=== PATIENT | male | born 1975 | race Caucasian/White ===

== ENCOUNTER 2020-03-14 02:26 | Emergency (ER) | payer MEDICAID ==
[~2020-03-14] VITALS: Ht 172.7 cm; Wt 92.5 kg
[2020-03-14 02:50] VITALS: BP 119/65
--- NOTE | 2020-03-14 02:52 | NUR ---
To ED bed 11
--- NOTE | 2020-03-14 03:02 | NUR ---
PT C/O ABD PAIN X1D @ 8/10 ON ADULT SCALE. STATES THAT HE VOMITTED X2 TODAY AFTER TAKING APAP FOR PAIN. BOWEL SOUNDS ACTIVE X4. TENDER TO PALPATION, SOFT, NON-DISTENDED. ALLERGIES-NONE PMH-NONE MEDICATION- APAP TODAY
--- NOTE | 2020-03-14 03:29 | NUR ---
PT TAKEN TO XRAY
--- NOTE | 2020-03-14 04:16 | NUR ---
URINE COLLECTED AND TAKEN TO LAB
--- NOTE | 2020-03-14 04:24 | NUR ---
PT TAKEN TO CT
--- NOTE | 2020-03-14 04:54 | NUR ---
BLOOD DRAWN AND TAKEN TO LAB
[2020-03-14 04:56] LABS: HEMATOCRIT 46.7 % (36-52); HEMOGLOBIN 15.8 g/dL (12.0-18.0); MEAN CORPUSCULAR HEMOGLOBIN 31 pg (27-31); MEAN CORPUSCULAR HGB CONC 34 g/dL (33-37); MEAN CORPUSCULAR VOLUME 92.4 fL (80-94); PLATELET COUNT (AUTO) 287 K/uL (140-450); RED BLOOD CELL COUNT(AUTO) 5.05 MIL/uL (4.20-6.10); WHITE BLOOD COUNT (AUTO) 14.9 K/uL (4.8-10.8)
[2020-03-14 05:14] LABS: LYMPHOCYTES % (MANUAL) 8 % (20-46); MONOCYTES % (MANUAL) 1 % (5-12)
[2020-03-14 05:20] LABS: ALBUMIN 3.7 g/dL (3.4-5.0); ANION GAP 14.7 (8-16); CARBON DIOXIDE 25.3 mmol/L (21-32); CREATININE 0.9 mg/dL (0.6-1.3); TOTAL BILIRUBIN 0.7 mg/dL (0.0-1.0)
[2020-03-14] MEDS ORDERED: PIPERACILLIN/TAZOBACTAM 4.5 GM in DEXTROSE 5% 100 ML IV ONE (05:20)
[2020-03-14] MEDS ORDERED: PIPERACILLIN/TAZOBACTAM 4.5 GM VIAL IV ONE (05:24)
--- NOTE | 2020-03-14 05:43 | NUR ---
COVID GIGI SWAB PERFORMED AND TAKEN TO LAB
--- NOTE | 2020-03-14 05:46 | NUR ---
ABX ADMINISTERED ORDERED
[2020-03-14 06:23] LABS: BILIRUBIN,URINE NEGATIVE (NEGATIVE); BLOOD, URINE NEGATIVE (NEGATIVE); COLOR,URINE YELLOW (YELLOW); LEUKOCYTE ESTERASE ,URINE NEGATIVE (NEGATIVE); NITRITE, URINE NEGATIVE (NEGATIVE); PH,URINE 8.5 (5.0-9.0); UGLUCOSE NEGATIVE (NEGATIVE)
[2020-03-14 06:24] LABS: APPEARANCE,URINE SLIGHTLY HAZY (CLEAR)
--- NOTE | 2020-03-14 06:33 | NUR ---
REPORT GIVEN TO SUJEY CHAVEZ, AT [facility] [place].
[2020-03-14 06:42] LABS: RBC,URINE 0-5 /HPF (0-5); WBC,URINE NONE SEEN /HPF (0-5)
--- NOTE | 2020-03-14 07:30 | NUR ---
PATIENT IS RESTING IN BED WITH EYES CLOSE, EASILY AROUSABLE TO VERBAL STIMULI. RESP EVEN AND UNLABORED, VSS
[2020-03-14 08:12] VITALS: BP 123/82
--- NOTE | 2020-03-14 08:13 | NUR ---
Patient to be transferred to [facility] ER. Is being transferred due to ACUTE APPENDICITIS . Receiving facility has accepting physician and available space. ER physician has signed transfer form. Patient or responsible green party has agreed to transfer and signed form. Patient belongings inventoried and will be sent with patient. Copy of nursing notes, lab reports, EKG, Physicians Orders and X-rays to be sent with patient. Report called to JEFF CHAVEZ at receiving facility.
== END 2020-03-14 08:13 | disposition short-term general hospital (02) ==
LOC: MED 02:26
DX: K37 Unspecified appendicitis (principal); K80.20 Calculus of gallbladder without cholecystitis without obstruction
CPT/HCPCS: 36415; 74021; 74176; 80053; 81001; 83690; 85025; 87426; 96365; 99285; J2543